=== PATIENT | female | born 1935 | race Asian ===

== ENCOUNTER 2016-05-24 04:12 | Inpatient (IN) | payer OTHER ==
[~2016-05-24] VITALS: Ht 157.5 cm; Wt 81.5 kg
[~2016-05-24 04:12] MED LIST: AMLO5TAB66 PO; ASPI81TA42 PO; FOLI0.8T22 PO; FURO20 PO; INSLAN SQ; INSU100C6 SQ; KDUR10 PO; VALS40TA4 PO; VITAD1000 PO
[2016-05-24 04:47] LABS: GLUCOSE,POINT OF CARE 63 MG/DL (70-110)
[2016-05-24 05:04] LABS: BASOPHILS % (AUTO) 0.7 % (0.0-2.0); EOSINOPHILS % (AUTO) 3.6 % (1.0-6.0); HEMATOCRIT 46.9 % (36-46); LYMPHOCYTES # (AUTO) 2.1 K/uL (1.0-4.8); MEAN CORPUSCULAR HEMOGLOBIN 30.4 pg (26.0-34.0); MEAN CORPUSCULAR VOLUME 95 fL (80-100); MONOCYTES # (AUTO) 0.6 K/uL (0.1-1.0); MONOCYTES % (AUTO) 6.2 % (2.0-9.0); NEUTROPHILS # (AUTO) 6.9 K/uL (1.8-7.7); NEUTROPHILS % (AUTO) 68.5 % (40.0-70.0); RED BLOOD CELL COUNT(AUTO) 4.93 MIL/uL (4.00-5.20); WHITE BLOOD COUNT (AUTO) 10.1 K/uL (4.5-11.0)
[2016-05-24 05:15] LABS: ANION GAP 7 mmol/L (8-16); CALCIUM, TOTAL 9.3 mg/dL (8.8-10.5); CARBON DIOXIDE 30 mmol/L (22-29); CHLORIDE 105 mmol/L (98-107); CREATININE 1.47 mg/dL (0.60-1.30); GLOMERULAR FILTR. RATE CALC 34 mL/min (>60); POTASSIUM 4.4 mmol/L (3.5-5.1); SODIUM SERUM 142 mmol/L (136-145); UREA NITROGEN, BLOOD 36 mg/dL (7-18)
[2016-05-24 05:17] LABS: INR 0.9 (0.9-1.1); PROTHROMBIN TIME 9.8 SEC (9.4-11.6)
[2016-05-24 05:21] LABS: PLATELET COUNT (AUTO) 169 K/uL (150-450)
[2016-05-24 05:26] LABS: B-TYPE NATRIURETIC PEPTIDE 336 pg/mL (0-100)
[2016-05-24 05:41] LABS: ALANINE AMINOTRANSFERASE 20 U/L (12-78); ALBUMIN 3.8 g/dL (3.4-5.0); ASPARTATE AMINOTRANSFERASE 26 U/L (15-37); BILIRUBIN,TOTAL 0.5 mg/dL (0.1-1.0); CREATINE KINASE MB 3.2 ng/mL (0-5); CREATINE KINASE, TOTAL 245 U/L (26-192); TOTAL PROTEIN, SERUM 7.9 g/dL (6.4-8.2)
[2016-05-24 05:49] LABS: APPEARANCE,URINE CLEAR (CLEAR); GLUCOSE, URINE (UA) NEGATIVE (NEGATIVE); KETONES,URINE NEGATIVE (NEGATIVE); LEUKOCYTE ESTERASE ,URINE NEGATIVE (NEGATIVE); OCCULT BLOOD,URINE SMALL (NEGATIVE); PROTEIN,URINE POS 1+ (NEGATIVE)
[2016-05-24 05:50] LABS: ADD UA MICROSCOPIC YES
[2016-05-24 06:13] LABS: SQUAMOUS EPITHELIAL CELL,UR Few /LPF (None Seen); WBC,URINE None Seen /HPF (0-5)
[2016-05-24] MEDS ORDERED: NITROGLYCERIN 2% (1 GM=INCH) PACKET TP ONE (08:15)
[2016-05-24] MEDS ORDERED: ASPIRIN 81 MG CHEWABLE TABLET PO ONE (08:15)
[2016-05-24] MEDS ORDERED: SODIUM CHLORIDE 0.9% 500 ML IV ONE (08:15)
[2016-05-24] MEDS ORDERED: ACETAMINOPHEN 325 MG TABLET PO PRN (08:15)
[2016-05-24] MEDS ORDERED: ONDANSETRON HCL 4 MG/2 ML VIAL IVP PRN (08:15)
[2016-05-24 09:12] LABS: GLUCOSE,POINT OF CARE 165 MG/DL (70-110)
[2016-05-24 12:11] VITALS: BP 194/78
[2016-05-24 12:26] VITALS: BP 191/87
[2016-05-24] MEDS ORDERED: HydrALAZINE HCL 20 MG/ML VIAL IVP PRN (13:00)
[2016-05-24] MEDS ORDERED: DEXTROSE 50%-WATER 25 GM/50 ML SYRINGE IVP PRN (13:00)
[2016-05-24] MEDS: INSULIN ASPART 100 UNITS/ML SQ PRN ×3 (13:07→21:55)
[2016-05-24 14:13] VITALS: BP 125/67
[2016-05-24] MEDS: CHOLECALCIFEROL (VIT D3) 1,000 UNITS TABLET PO SCH (14:34)
[2016-05-24] MEDS: POTASSIUM CHLORIDE 8 MEQ ER TABLET PO SCH (14:35)
[2016-05-24] MEDS: ASPIRIN 81 MG EC TABLET PO SCH (14:35)
[2016-05-24] MEDS: VITAMIN B COMP/VIT C/FOLIC ACID CAPSULE PO SCH (14:35)
[2016-05-24] MEDS: VALSARTAN 40 MG TABLET PO SCH (16:52)
[2016-05-24 17:21] VITALS: BP 136/56
[2016-05-24 20:06] VITALS: BP 153/82
[2016-05-24 23:44] VITALS: BP 131/82
[2016-05-25 03:45] VITALS: BP 159/80
[2016-05-25] MEDS: INSULIN ASPART 100 UNITS/ML SQ PRN ×4 (06:02→21:05)
[2016-05-25 06:40] LABS: BASOPHILS % (AUTO) 0.5 % (0.0-2.0); HEMATOCRIT 43.9 % (36-46); HEMOGLOBIN 14.1 g/dL (12.0-16.0); LYMPHOCYTES # (AUTO) 1.7 K/uL (1.0-4.8); LYMPHOCYTES % (AUTO) 18.7 % (22.0-44.0); MEAN CORPUSCULAR HEMOGLOBIN 30.4 pg (26.0-34.0); MEAN CORPUSCULAR VOLUME 95 fL (80-100); MONOCYTES # (AUTO) 0.7 K/uL (0.1-1.0); MONOCYTES % (AUTO) 7.4 % (2.0-9.0); NEUTROPHILS # (AUTO) 6.4 K/uL (1.8-7.7); NEUTROPHILS % (AUTO) 70.4 % (40.0-70.0); PLATELET COUNT (AUTO) 161 K/uL (150-450); RED BLOOD CELL COUNT(AUTO) 4.62 MIL/uL (4.00-5.20); RED CELL DISTRIBUTION WIDTH 13.7 % (11.5-14.5); WHITE BLOOD COUNT (AUTO) 9.1 K/uL (4.5-11.0)
[2016-05-25] MEDS ORDERED: 0.9% SODIUM CHLORIDE 10 ML SYRINGE IVP PRN (07:00)
[2016-05-25 07:01] LABS: ALBUMIN 3.4 g/dL (3.4-5.0); BILIRUBIN,TOTAL 0.4 mg/dL (0.1-1.0); CALCIUM, TOTAL 9.1 mg/dL (8.8-10.5); CREATININE 1.53 mg/dL (0.60-1.30); POTASSIUM 4.7 mmol/L (3.5-5.1); TOTAL PROTEIN, SERUM 7.2 g/dL (6.4-8.2)
[2016-05-25 07:40] VITALS: BP 155/71
[2016-05-25] MEDS: POTASSIUM CHLORIDE 8 MEQ ER TABLET PO SCH (08:04)
[2016-05-25] MEDS: ASPIRIN 81 MG EC TABLET PO SCH (08:04)
[2016-05-25] MEDS: AmLODIPine BESYLATE 5 MG TABLET PO SCH (08:04)
[2016-05-25] MEDS: CHOLECALCIFEROL (VIT D3) 1,000 UNITS TABLET PO SCH (08:04)
[2016-05-25] MEDS: VITAMIN B COMP/VIT C/FOLIC ACID CAPSULE PO SCH (08:04)
[2016-05-25] MEDS: VALSARTAN 40 MG TABLET PO SCH (08:04)
[2016-05-25] MEDS: FUROSEMIDE 20 MG TABLET PO SCH (08:04)
[2016-05-25 11:16] VITALS: BP 155/75
[2016-05-25 15:38] VITALS: BP 151/66
[2016-05-25 19:22] VITALS: BP 155/89
[2016-05-26 04:35] VITALS: BP 153/80
[2016-05-26] MEDS: INSULIN ASPART 100 UNITS/ML SQ PRN ×2 (06:52→11:22)
[2016-05-26 06:57] LABS: HEMOGLOBIN A1C 7.8 % (4.5-6.2)
[2016-05-26 06:59] LABS: CALCIUM, TOTAL 8.9 mg/dL (8.8-10.5); CREATININE 1.62 mg/dL (0.60-1.30); MAGNESIUM 2.1 mg/dL (1.80-2.40); POTASSIUM 4.4 mmol/L (3.5-5.1)
[2016-05-26 07:00] LABS: CHOL/HDL RATIO 2.1 (3.9-5.7); THYROID STIMULATING HORMONE 1.4 uIU/mL (0.36-3.74)
[2016-05-26 07:13] LABS: BASOPHILS % (AUTO) 0.9 % (0.0-2.0); EOSINOPHILS % (AUTO) 3.5 % (1.0-6.0); HEMATOCRIT 41.9 % (36-46); HEMOGLOBIN 13.4 g/dL (12.0-16.0); LYMPHOCYTES # (AUTO) 2.1 K/uL (1.0-4.8); LYMPHOCYTES % (AUTO) 25.8 % (22.0-44.0); MEAN CORPUSCULAR HEMOGLOBIN 30.5 pg (26.0-34.0); MEAN CORPUSCULAR HGB CONC 31.9 G/dL (31.0-37.0); MEAN CORPUSCULAR VOLUME 96 fL (80-100); MONOCYTES # (AUTO) 0.7 K/uL (0.1-1.0); MONOCYTES % (AUTO) 9.2 % (2.0-9.0); NEUTROPHILS # (AUTO) 4.9 K/uL (1.8-7.7); NEUTROPHILS % (AUTO) 60.6 % (40.0-70.0); PLATELET COUNT (AUTO) 151 K/uL (150-450); RED BLOOD CELL COUNT(AUTO) 4.38 MIL/uL (4.00-5.20); RED CELL DISTRIBUTION WIDTH 13.9 % (11.5-14.5)
[2016-05-26 07:33] VITALS: BP 143/76
[2016-05-26 11:04] VITALS: BP 136/72
[2016-05-26] MEDS: VITAMIN B COMP/VIT C/FOLIC ACID CAPSULE PO SCH (11:12)
[2016-05-26] MEDS: FUROSEMIDE 20 MG TABLET PO SCH (11:12)
[2016-05-26] MEDS: VALSARTAN 40 MG TABLET PO SCH (11:12)
[2016-05-26] MEDS: ASPIRIN 81 MG EC TABLET PO SCH (11:12)
[2016-05-26] MEDS: AmLODIPine BESYLATE 5 MG TABLET PO SCH (11:13)
[2016-05-26] MEDS: POTASSIUM CHLORIDE 8 MEQ ER TABLET PO SCH (11:13)
[2016-05-26] MEDS: CHOLECALCIFEROL (VIT D3) 1,000 UNITS TABLET PO SCH (11:13)
[2016-05-27 06:47] LABS: GLUCOSE,POINT OF CARE 177 MG/DL (70-110)
[2016-05-27 06:48] LABS: GLUCOSE,POINT OF CARE 155 MG/DL (70-110)
[2016-05-27 06:48] LABS: GLUCOSE COMMENT 1 Received Meds; GLUCOSE,POINT OF CARE 302 MG/DL (70-110)
[2016-05-27 06:52] LABS: GLUCOSE COMMENT 1 Received Meds; GLUCOSE,POINT OF CARE 145 MG/DL (70-110)
== END 2016-05-26 16:50 | disposition home or self-care (01) | DRG 312 ==
LOC: EMS 04:13 → 5S 10:28
PROVIDERS: ADMIT Family Medicine; ATTEND Family Medicine
DX: R55 Syncope and collapse (principal); E11.22 Type 2 diabetes mellitus with diabetic chronic kidney disease; N18.9 Chronic kidney disease, unspecified; K21.9 Gastro-esophageal reflux disease without esophagitis; F45.8 Other somatoform disorders; I12.9 Hypertensive chronic kidney disease with stage 1 through stage 4 chronic kidney disease, or unspecified chronic kidney disease; E04.9 Nontoxic goiter, unspecified; M81.0 Age-related osteoporosis without current pathological fracture; Z79.4 Long term (current) use of insulin; Z79.82 Long term (current) use of aspirin; Z79.899 Other long term (current) drug therapy; Z98.890 Other specified postprocedural states
CPT/HCPCS: 70450; 82962; 83036; 83735; 84443; 93005; 93306; 93880; 96360; 97162; 99285; J0360; J7040

== ENCOUNTER 2016-10-01 17:47 | Emergency (ER) | payer OTHER ==
[~2016-10-01] VITALS: Ht 152.4 cm; Wt 85.3 kg
[2016-10-01] MEDS ORDERED: MECL12.585 PO (17:56)
[2016-10-01] MEDS ORDERED: QUET100T PO (17:56)
[2016-10-01] MEDS ORDERED: METO25 PO (17:56)
[2016-10-01] MEDS ORDERED: ESCI10TA PO ×2 (17:56→18:10)
[2016-10-01] MEDS ORDERED: LISI-660 PO (17:56)
[2016-10-01] MEDS ORDERED: SIMV-260 PO (17:56)
[2016-10-01 18:46] LABS: BASOPHILS % (AUTO) 0.4 % (0.0-2.0); EOSINOPHILS % (AUTO) 0.5 % (1.0-6.0); HEMATOCRIT 41.7 % (36-46); HEMOGLOBIN 13.7 g/dL (12.0-16.0); LYMPHOCYTES % (AUTO) 10.5 % (22.0-44.0); MEAN CORPUSCULAR HEMOGLOBIN 31.7 pg (26.0-34.0); MEAN CORPUSCULAR HGB CONC 32.7 G/dL (31.0-37.0); MEAN CORPUSCULAR VOLUME 97 fL (80-100); MONOCYTES # (AUTO) 0.5 K/uL (0.1-1.0); MONOCYTES % (AUTO) 5.6 % (2.0-9.0); NEUTROPHILS # (AUTO) 7.6 K/uL (1.8-7.7); PLATELET COUNT (AUTO) 181 K/uL (150-450); RED BLOOD CELL COUNT(AUTO) 4.31 MIL/uL (4.00-5.20); RED CELL DISTRIBUTION WIDTH 14.9 % (11.5-14.5); WHITE BLOOD COUNT (AUTO) 9.2 K/uL (4.5-11.0)
[2016-10-01 18:54] LABS: ANION GAP 11 mmol/L (8-16); CALCIUM, TOTAL 8.8 mg/dL (8.8-10.5); CARBON DIOXIDE 25 mmol/L (22-29); CHLORIDE 101 mmol/L (98-107); CREATININE 1.59 mg/dL (0.60-1.30); GLOMERULAR FILTR. RATE CALC 31 mL/min (>60); POTASSIUM 4.4 mmol/L (3.5-5.1); SODIUM SERUM 137 mmol/L (136-145); UREA NITROGEN, BLOOD 29 mg/dL (7-18)
[2016-10-01 19:17] LABS: GLUCOSE COMMENT 1 Doctor Notified; GLUCOSE,POINT OF CARE 188 MG/DL (70-110)
[2016-10-01 19:18] LABS: ALANINE AMINOTRANSFERASE 24 U/L (12-78); ALBUMIN 3.8 g/dL (3.4-5.0); ASPARTATE AMINOTRANSFERASE 16 U/L (15-37); BILIRUBIN,TOTAL 0.4 mg/dL (0.1-1.0); CREATINE KINASE MB 2.9 ng/mL (0-5); CREATINE KINASE, TOTAL 154 U/L (26-192); TOTAL PROTEIN, SERUM 7.6 g/dL (6.4-8.2)
[2016-10-01 21:38] LABS: GLUCOSE COMMENT 1 Doctor Notified; GLUCOSE,POINT OF CARE 158 MG/DL (70-110)
[2016-10-01 23:19] VITALS: BP 142/54
== END 2016-10-02 00:13 | disposition home or self-care (01) ==
LOC: EMS 17:48
DX: E11.649 Type 2 diabetes mellitus with hypoglycemia without coma (principal); K21.9 Gastro-esophageal reflux disease without esophagitis; I10 Essential (primary) hypertension; N28.9 Disorder of kidney and ureter, unspecified; Z79.4 Long term (current) use of insulin
CPT/HCPCS: 82962; 93005; 99291

== ENCOUNTER 2016-10-03 12:33 | Emergency (ER) | payer OTHER ==
[~2016-10-03] VITALS: Ht 157.5 cm; Wt 84.8 kg
[~2016-10-03 12:33] MED LIST changes: -AMLO5TAB66 PO; +ESCI10TA PO; -FURO20 PO; -INSLAN SQ; -KDUR10 PO; +LISI-660 PO; +MECL12.585 PO; +METO25 PO; +QUET100T PO; +SIMV-260 PO; -VALS40TA4 PO
[2016-10-03 12:52] LABS: GLUCOSE,POINT OF CARE 134 MG/DL (70-110)
[2016-10-03 13:32] LABS: HEMATOCRIT 37.1 % (36-46); HEMOGLOBIN 12.5 g/dL (12.0-16.0); RED BLOOD CELL COUNT(AUTO) 3.97 MIL/uL (4.00-5.20); WHITE BLOOD COUNT (AUTO) 8.3 K/uL (4.5-11.0)
[2016-10-03 13:33] LABS: BASOPHILS % (AUTO) 0.5 % (0.0-2.0); MEAN CORPUSCULAR HEMOGLOBIN 31.6 pg (26.0-34.0); MEAN CORPUSCULAR HGB CONC 33.8 G/dL (31.0-37.0); MEAN CORPUSCULAR VOLUME 94 fL (80-100); MONOCYTES % (AUTO) 7.5 % (2.0-9.0); NEUTROPHILS % (AUTO) 68.1 % (40.0-70.0); PLATELET COUNT (AUTO) 223 K/uL (150-450); RED CELL DISTRIBUTION WIDTH 14.7 % (11.5-14.5)
[2016-10-03 13:34] LABS: BASOPHILS # (AUTO) 0.04 K/uL (0.00-0.20); EOSINOPHILS # (AUTO) 0.24 K/uL (0.00-0.70); LYMPHOCYTES # (AUTO) 1.7 K/uL (1.0-4.8); MONOCYTES # (AUTO) 0.6 K/uL (0.1-1.0); NEUTROPHILS # (AUTO) 5.6 K/uL (1.8-7.7)
[2016-10-03 13:53] LABS: ORIG DRAW (USER) PTCARESTAF
[2016-10-03 14:25] LABS: B-TYPE NATRIURETIC PEPTIDE 341 pg/mL (0-100)
[2016-10-03 14:35] LABS: ANION GAP 8 mmol/L (8-16); CALCIUM, TOTAL 8.8 mg/dL (8.8-10.5); CARBON DIOXIDE 29 mmol/L (22-29); CHLORIDE 104 mmol/L (98-107); CREATININE 1.59 mg/dL (0.60-1.30); GLOMERULAR FILTR. RATE CALC 31 mL/min (>60); POTASSIUM 4.6 mmol/L (3.5-5.1); SODIUM SERUM 141 mmol/L (136-145); UREA NITROGEN, BLOOD 31 mg/dL (7-18)
[2016-10-03 15:00] LABS: ALANINE AMINOTRANSFERASE 23 U/L (12-78); ALBUMIN 3.4 g/dL (3.4-5.0); ASPARTATE AMINOTRANSFERASE 15 U/L (15-37); BILIRUBIN,TOTAL 0.3 mg/dL (0.1-1.0); CREATINE KINASE MB 2.5 ng/mL (0-5); CREATINE KINASE, TOTAL 156 U/L (26-192); TOTAL PROTEIN, SERUM 6.8 g/dL (6.4-8.2)
[2016-10-03 18:36] VITALS: BP 168/79
== END 2016-10-03 19:23 | disposition short-term general hospital (02) ==
LOC: EMS 12:36
DX: I35.0 Nonrheumatic aortic (valve) stenosis (principal); E11.9 Type 2 diabetes mellitus without complications; K21.9 Gastro-esophageal reflux disease without esophagitis; I10 Essential (primary) hypertension; Z79.4 Long term (current) use of insulin
CPT/HCPCS: 70450; 82962; 93005; 99285